=== PATIENT | male | born 1975 | race Caucasian/White ===

== ENCOUNTER 2024-06-14 11:46 | Emergency (ER) | payer OTHER ==
[~2024-06-14] VITALS: Ht 175.3 cm; Wt 83.0 kg
[2024-06-14 11:51] VITALS: BP 129/80; PULSE 84; RESP 18; TEMP 99.9; O2SAT 95
[2024-06-14] MEDS: ACETAMINOPHEN 500 MG TABLET PO ONE (12:36)
[2024-06-14 13:01] LABS: COVID AG,FIA SOURCE NASAL SWAB
[2024-06-14 13:29] LABS: INFLUENZA TYPE B NEGATIVE FOR TYPE B (NEGATIVE); SARS-COV2 (COVID) ANTIGEN,FIA Negative (Negative)
[2024-06-14 13:36] LABS: INFLUENZA TYPE A POSITIVE FOR TYPE A (NEGATIVE)
[2024-06-14] MEDS ORDERED: ACET-3385 PO (14:05)
[2024-06-14] MEDS ORDERED: OSEL75CA45 PO (14:06)
[2024-06-14] MEDS ORDERED: IBUP-1492 PO (14:06)
== END 2024-06-14 14:19 | disposition home or self-care (01) ==
LOC: EMS 11:47
DX: J10.1 Influenza due to other identified influenza virus with other respiratory manifestations (principal); Z23 Encounter for immunization; Z20.822 Contact with and (suspected) exposure to COVID-19
CPT/HCPCS: 87804; 99283